=== PATIENT | female | born 1975 | race Caucasian/White ===

== ENCOUNTER → 2021-01-18 | Outpatient (CLI) | payer BC ==
--- NOTE | 2021-01-19 09:25 | RAD ---
DATE: 01/18/2021 9:33 AM EXAM: DIGITAL SCREEN BILAT W/CAD HISTORY: Screening COMPARISON: None currently available. This will serve as a new baseline. Bilateral full field craniocaudal and mediolateral oblique images were obtained using digital technique. Implant displaced views in the CC and MLO views were also obtained. This study was interpreted with the benefit of Computerized Aided Detection (CAD). FINDINGS: Breast Density: SCATTERED The breast parenchyma shows scattered fibroglandular densities. Breast parenchyma level B Bilateral subpectoral silicone implants are partially imaged. No suspicious masses, microcalcifications or architectural distortion is present to suggest malignancy in either breast. The visualized axillae are unremarkable. IMPRESSION: No mammographic evidence of malignancy. BI-RADS CATEGORY: 1 NEGATIVE RECOMMENDED FOLLOW-UP: 12M 12 MONTH FOLLOW-UP Annual screening mammography is recommended, unless clinically indicated sooner based on symptoms or change in physical exam. PQRS compliance statement: Patient information was entered into a reminder system with a target due date for the next mammogram. Mammography is a sensitive method for finding small breast cancers, but it does not detect them all and is not a substitute for careful clinical examination. A negative mammogram does not negate a clinically suspicious finding and should not result in delay in biopsying a clinically suspicious abnormality. "Our facility is accredited by the [employer] Mammography Program."
== END ==
LOC: MAMMO 09:26
PROVIDERS: ATTEND Advanced Practice Midwife
DX: Z12.31 Encounter for screening mammogram for malignant neoplasm of breast (principal); Z01.419 Encounter for gynecological examination (general) (routine) without abnormal findings
CPT/HCPCS: 77067

== ENCOUNTER 2022-02-22 05:16 | Emergency (ER) | payer BC ==
[~2022-02-22] VITALS: Ht 167.6 cm; Wt 36.3 kg
[2022-02-22 05:16] VITALS: BP 120/78
--- NOTE | 2022-02-22 05:53 | PHYS DOC ---
General Adult EDM: Chief Complaint: COUGH HPI: HPI: 46-year-old female presents with cough, congestion, body aches. She said the symptoms for a few days. She may have had a fever, but she has not measured 1. She has not had any significant cold sweats or shaking chills. She comes in today because her wanted her evaluated. She is having difficulty sleeping because she is coughing so much. Patient was not vaccinated against COVID-19. She believes that she had COVID-19 in October 2021. She has no other complaints this time. (BROWN DECKER DO) Review of Systems: Review of Systems: Constitutional: Denies fever or chills. Body aches, fatigue Eyes: Denies change in visual acuity HENT: Denies nasal congestion or sore throat Respiratory: Cough without shortness of breath Cardiovascular: Denies chest pain or edema GI: Denies abdominal pain, nausea, vomiting, bloody stools or diarrhea : Denies dysuria Musculoskeletal: Denies back pain or joint pain Integument: Denies rash Neurologic: Denies headache, focal weakness or sensory changes Endocrine: Denies polyuria or polydipsia Lymphatic: Denies swollen glands Psychiatric: Denies depression or anxiety (BROWN DECKER DO) Physical Exam: PE: Constitutional: Well developed, well nourished, no acute distress, non-toxic appearance. [] HENT: Normocephalic, atraumatic, bilateral external ears normal, oropharynx moist, no oral exudates, nose normal. [] Eyes: PERRLA, EOMI, conjunctiva normal, no discharge. [] Neck: Normal range of motion, no tenderness, supple, no stridor. [] Cardiovascular: Heart rate regular rhythm, no murmur [] Lungs & Thorax: Bilateral breath sounds clear to auscultation [] Abdomen: Bowel sounds normal, soft, no tenderness, no masses, no pulsatile masses. [] Skin: Warm, dry, no erythema, no rash. [] Back: No tenderness, no CVA tenderness. [] Extremities: No tenderness, no cyanosis, no clubbing, ROM intact, no edema. [] Neurologic: Alert and oriented X 3, normal motor function, normal sensory function, no focal deficits noted. [] Psychologic: Affect normal, judgement normal, mood normal. [] (BROWN DECKER DO) EKG: EKG: [] (BROWN DECKER DO) Radiology/Procedures: Radiology/Procedures: [] (BROWN DECKER DO) Radiology/Procedures: IMAGING REPORT Signed PATIENT: LORE GOMEZ MACCOUNT: [id number] : 1975 LOCATION: ER AGE: 46 SEX: F EXAM STATUS: DEP ER ORD. PHYSICIAN: BROWN DECKER DO REASON: cough FOR 5 DAYS, fever PROCEDURE: CHEST AP ONLY EXAMINATION: Chest radiograph. VIEWS: 1 COMPARISON: None INDICATION:46 years, Female, cough. FINDINGS: Normal cardiomediastinal silhouette. No focal consolidation. No pleural effusion or pneumothorax. No acute osseous process. IMPRESSION: No acute cardiopulmonary process. Electronically signed by: Moiz Madrid MD (02/22/2022 7:22 AM) [facility] DICTATED AND SIGNED BY: MOIZ MADRID MD DATE: 02/22/22720 CC: BROWN DECKER DO; LAVON ARIAS DO; PADMINI ROBISON APRN ~ (LAVON ARIAS DO) Heart Score: C/O Chest Pain: N/A Risk Factors: Risk Factors: DM, Current or recent (<one month) smoker, HTN, HLP, family history of CAD, obesity. Risk Scores: Score 0 - 3: 2.5% MACE over next 6 weeks - Discharge Home Score 4 - 6: 20.3% MACE over next 6 weeks - Admit for Clinical Observation Score 7 - 10: 72.7% MACE over next 6 weeks - Early Invasive Strategies (BROWN DECKER DO) Course & Med Decision Making: Course & Med Decision Making Pertinent Labs and Imaging studies reviewed. (See chart for details) The patient's physical exam is unremarkable. We will perform a chest x-ray and do a Covid and influenza swab. The patient's work-up is pending at this time. I am signing patient out to the dayshift at 0600. [] (BROWN DECKER DO) Course & Med Decision Making This patient was originally seen by Dr. Decker. Please see his note for H&P and HPI. I assumed care at 0600 this morning. Influenza, Covid assays are pe nding. Chest x-ray is pending. I reviewed laboratory exams, negative Covid and negative influenza exams noted. Chest x-ray is unremarkable. I discussed the findings, differential diagnosis and plan of care. The patient has not been coughing here. She is afebrile, vital signs stable. She denies chest pain or dyspnea. She is well-appearing. There is no indication for antibiotics at this time. No indication for further invasive exams or imaging at this time. She is prescribed Tessalon Perles to help with coughing. I explained that she may take [id number] antihistamines to help with congestion. She may use a coolmist humidifier to help with congestion at night. She should follow-up with her PCP. Return precautions are given. She verbalizes understanding and is comfortable with the plan of care. (LAVON ARIAS DO) Dragon Disclaimer: Dragon Disclaimer: This electronic medical record was generated, in whole or in part, using a voice recognition dictation system. (BROWN DECKER DO) Departure Departure: Impression: Primary Impression: Viral URI with cough Disposition: HOME / SELF CARE / HOMELESS Condition: STABLE Referrals: PADMINI ROBISON APRN (PCP) Patient Instructions: Upper Respiratory Infection, Adult Additional Instructions: Take the cough medicine as needed/as directed. Stay hydrated, drink plenty fluids. You may take [id number] Claritin to help with congestion or sneezing symptoms. You may use a coolmist humidifier in your room to help with dryness or congestion as well. Return to the ER for chest pain, shortness of breath, wheezing, coughing up blood, abdominal pain, vomiting, dehydration, weakness or other concerns. Your x-ray does not show any evidence of pneumonia. Your influenza and Covid swabs are negative here. You likely have a viral ill ness, which will just need to run its course. There is no indication for antibiotics at this time. Follow-up with your primary care doctor. Scripts Benzonatate (BENZONATATE) 200 Mg Capsule 1 CAP PO PRN TID PRN for cough, #20 CAP 0 Refills do not crush or chew Prov: LAVON ARIAS DO 02/22/22 BROWN DECKER DO Feb 22, 2022 05:53 LAVON ARIAS DO Feb 22, 2022 06:58
[2022-02-22 06:32] LABS: INFLUENZA A PATIENT NEGATIVE (NEGATIVE); INFLUENZA B PATIENT NEGATIVE (NEGATIVE)
[2022-02-22] MEDS ORDERED: BENZ200C47 PO (06:57)
--- NOTE | 2022-02-22 07:24 | RAD ---
EXAMINATION: Chest radiograph. VIEWS: 1 COMPARISON: None INDICATION:46 years, Female, cough. FINDINGS: Normal cardiomediastinal silhouette. No focal consolidation. No pleural effusion or pneumothorax. No acute osseous process. IMPRESSION: No acute cardiopulmonary process. Electronically signed by: Sherri Madrid MD (02/22/2022 7:22 AM) [facility]
== END 2022-02-22 07:00 | disposition home or self-care (01) ==
LOC: ER 05:16
DX: J06.9 Acute upper respiratory infection, unspecified (principal); Z20.822 Contact with and (suspected) exposure to COVID-19
CPT/HCPCS: 71045; 87428; 99284